=== PATIENT | female | born 1985 | race Caucasian/White ===

== ENCOUNTER 2018-08-17 00:29 | Outpatient (CLI) | payer MEDICAID, SELFPAY ==
--- NOTE | 2018-08-17 11:00 | DI.CT_ITS ---
SYMPTOM/DIAGNOSIS: LT EAR PAIN, H92.02, ? MASTOIDITIS NONCONTRAST HEAD CT: A noncontrast cranial CT was performed. Ventricular system is normal in appearance. No evidence of intracranial hemorrhage, mass effect or midline shift. The orbital structures appear intact. Paranasal sinuses are generally well aerated with minimal mucoperiosteal thickening of left maxillary antrum. Mastoid air cells appear clear bilaterally. The middle and inner ear structures appear intact as visualized. CONCLUSION: Negative cranial CT. No evidence of mastoiditis.
== END 2018-08-17 00:49 ==
PROVIDERS: PCP Nurse Practitioner Family; Visit Provider Nurse Practitioner Family
DX: H92.02 Otalgia, left ear (principal)
CPT/HCPCS: 70450

== ENCOUNTER 2018-08-17 17:09 | Outpatient (REF) | payer MEDICAID, SELFPAY ==
[2018-08-17 21:16] LABS: Iron 41 ug/dL (50-175)
[2018-08-17 21:42] LABS: Folate 18.8 ng/mL (8.6-20.0); Vitamin B12 386 pg/mL (193-986)
== END 2018-08-17 17:29 ==
LOC: NCHCN 17:09
PROVIDERS: PCP Nurse Practitioner Family; Visit Provider Nurse Practitioner Family
DX: K13.79 Other lesions of oral mucosa (principal)
CPT/HCPCS: 70450; 82607; 82746; 83540

== ENCOUNTER 2019-02-16 14:11 | Outpatient (REF) | payer MEDICAID, SELFPAY ==
--- NOTE | 2019-02-16 13:30 | PAPFT_PTH ---
PATIENT: Citlali Soriano LOC: [facility] U#:[id number] AGE/SX: 33/F ROOM: RE02/16/[address]: LEONOR Lara : 1985 BED: DIS: 02/16/2019 SPEC #: [id number] RECD: 02/16/19 18:01 STATUS: GLENN REQ #: [id number] JÚNIOR: 02/16/19 13:[address]: Concetta Dumont DEPT: [facility] Cytology RECD BY: Angelique Mtz ENTERED: 02/16/19 18:01 SP TYPE: PAPFT OTHR DR: Jane Ulloa Tissues: 1 - CX/ENDOCX FOR PAP SMEARS Procedures: PAP THIN PREP/UVM Screening HPV DNA PROBE Comments: [id number]
[2019-02-19 14:51] LABS: Chlamydia Result Negative (Negative); GC Result Negative (Negative); Specimen Description CERVIX
== END 2019-02-16 14:31 ==
LOC: LBN 14:11
PROVIDERS: PCP Nurse Practitioner Family; Visit Provider Nurse Practitioner Family
DX: Z11.3 Encounter for screening for infections with a predominantly sexual mode of transmission (principal); Z12.4 Encounter for screening for malignant neoplasm of cervix; Z11.51 Encounter for screening for human papillomavirus (HPV)
CPT/HCPCS: 87491; 87591; 88142; 87624

== ENCOUNTER 2019-02-24 11:43 | Emergency (ER) | payer MEDICAID, SELFPAY ==
[2019-02-24 11:56] VITALS: BP 134/76; PULSE 78; RESP 18; TEMP 37.1; O2SAT 98
--- NOTE | 2019-02-24 12:24 | ED.GENADUL_ITS ---
Discharge Plan Disposition Patient Disposition: HOME Condition: Improving Discharge Details Chief Complaint: GenMedical Clinical Impression: Contusion of left shoulder Primary Care Provider: Jane Ulloa ED Provider: Matias Drummond Home Meds and New Rx's Prescriptions: Continued fluoxetine 40 mg capsule 40 mg PO DAILY RF: 0 ferrous gluconate 324 mg (37.5 mg iron) tablet 324 mg PO BID RF: 0 naproxen 500 mg tablet 500 mg PO BID PRNRF: 0 riboflavin (vitamin B2) [Vitamin B-2] 100 mg tablet 200 mg PO .q am & pm RF: 0 trazodone 50 mg tablet 100 mg PO QHS RF: 0 omeprazole 40 mg capsule,delayed release(DR/EC) 40 mg PO DAILY RF: 0 gabapentin 600 mg tablet 600 mg PO TID RF: 0 albuterol 90 mcg/actuation aerosol See Rx Instructions IH .COMPLEX PRNRF: 0 Mirena 1 EACH intrauterine device 1 ea Intrauterine ONCE Qty: 1 RF: 0 docusate sodium [Colace] 100 MG capsule 100 mg PO BID Qty: 60 RF: 1 Discharge Instructions Instructions: Contusion in Adults (ED) Additional Instructions: Please follow-up with orthopedics for recheck. Please call the office at [phone] for an appointment time. Sling as needed for comfort. You may begin to reuse the arm as tolerated. Ice to area to reduce discomfort. May use Tylenol if needed for pain. Return to the ER for any acute concern. Medical Decision Making 33-year-old female presents stating that she was sitting on the toilet last night, believes that she fell asleep and fell onto her left side, striking her head and shoulder. Now with left shoulder pain that is limiting the movement of the arm. She initially stated that she could not move it, but moves it willfully upon my examination but limited by pain. She does have sensation intact throughout the shoulder including lateral deltoid. Referred for CT scan of the head, cervical spine, chest x-ray, left shoulder x- ray. These imaging studies are unremarkable with the exception of the left glenohumeral joint space is widened. There is slight inferior and anterior subluxation. Consideration of joint effusion., Consider deltoid atony. I discussed the case with Dr. Godfrey. We will place patient in sling, she may follow-up in orthopedics, she may use the joint ad mylene. Patient stable. ECG Data Attestation: I personally reviewed and interpreted this ECG (s) as follows: Interpretation: Normal sinus rhythm, rate of 76, the QRS is narrow, intervals are unremarkable, there is no ST segment elevation present. HPI General Mode of arrival: ambulatory . Date/Time Provider Initiated Documentation: 02/24/19 12:07 . Limitations to Documentation: no limitations . Information obtained by: patient . History of Present Illness 33 year old F presents to the emergency department with the chief complaint of Fall off toilet last night, left shoulder pain, headache, Quality is described as dull and constant, and is localized to the head, left and upper extremity. Patient reports no radiation. Patient started experiencing this hour(s) and it has been constant. Movement improves symptom(s), Rest worsens symptoms . Patient notes denies confusion, fever/chills and headaches. Patient did receive the following treatments prior to arrival, none Related Data Home Medications Medication Instructions Recorded Confirmed Mirena 1 ea INTRAUTERINE ONCE #1 implant 07/02/14 07/19/16 docusate sodium [Colace] 100 mg PO BID #60 cap 09/06/14 albuterol 90 mcg/actuation aerosol See Rx Instructions IH .COMPLEX PRN 02/16/19 inhaler ferrous gluconate 324 mg (37.5 mg 324 mg PO BID tab 02/16/19 iron) tablet fluoxetine 40 mg capsule 40 mg PO DAILY 02/16/19 gabapentin 600 mg tablet 600 mg PO TID 02/16/19 naproxen 500 mg tablet 500 mg PO BID PRN 02/16/19 omeprazole 40 mg capsule,delayed 40 mg PO DAILY 02/16/19 release riboflavin (vitamin B2) 100 mg 200 mg PO .q am & pm tab 02/16/19 tablet trazodone 50 mg tablet 100 mg PO QHS tab 02/16/19 Allergies Allergy/AdvReac Type Severity Reaction Status Date / Time cefdinir [From Omnicef] Allergy Intermediate Hives Unverified 02/22/19 13:35 General Stated Complaint: GenMedical YAMILET: 3 Review of Systems Narrative: 6 systems reviewed and otherwise negative. PFSH Family History Father COPD (chronic obstructive pulmonary disease) Mother Stomach cancer Social History Smoking/Tobacco Use Status: Current every day Quit status: not considering quitting Alcohol Intake: former Drug use: Occasionally Substance use type: marijuana Do you feel safe at home: Yes Do you feel safe in your relationship?: Yes Exam Narrative Exam Narrative: GEN: awake, alert, oriented 3. Pleasant, well groomed, interactive. HEAD: Normocephalic, atraumatic ENT: Mucous membranes moist, oropharynx unremarkable, External ear exam unremarkable EYES: PERRL, EOMI NECK: Full ROM, no LAURIE, no menigismus CHEST/RESP: Nontender, clear to auscultation bilateral, no wheeze/rhonchi/rales CARDIOVASCULAR: RRR, no murmur, rub sherrie. 2+ Rad pulse bilateral ABDOMEN: Soft, nontender, no mass. +Bowel sounds EXT: Pain with palpation left supraspinatus posterior shoulder. Motor diminished left side. Neuro: Grossly normal neurologic exam, conversant, interactive. Psych: Speech fluent, thoughts congruent, affect normal Course Vital Signs Vital signs: Vital Signs Temperature 37.1 C 02/24/19 11:56 Pulse 78 02/24/19 11:56 Respiratory Rate 18 02/24/19 11:56 Blood Pressure 134/76 02/24/19 11:56 Pulse Oximetry 98 02/24/19 11:56 Temperature 37.1 C 02/24/19 11:56 Temperature Source Skin 02/24/19 11:56 Pulse 78 02/24/19 11:56 Respiratory Rate 18 02/24/19 11:56 Respiratory Effort Non-Labored 02/24/19 12:01 Respiratory Depth Normal 02/24/19 12:01 Respiratory Pattern Normal 02/24/19 12:01 Blood Pressure 134/76 02/24/19 11:56 Blood Pressure Position Sitting 02/24/19 11:56 Pulse Oximetry 98 02/24/19 11:56 Oxygen Delivery Method Room Air 02/24/19 11:56 Oxygen Flow Rate 0 02/24/19 11:56 Pain Level 8 02/24/19 11:56
--- NOTE | 2019-02-24 13:18 | DI.RAD_ITS ---
EXAM: XR CHEST 2V PA LATERAL INDICATION: L shoulder pain. COMPARISON: CHEST 2 VIEWS PA,LAT from 06/28/2016 TECHNIQUE: 2D digital imaging was performed. FINDINGS: Heart size and pulmonary vasculature are within normal limits. There is linear atelectasis in the le ft lung base. The lungs are otherwise clear. No pleural effusion or pneumothorax is identified. Th e bones appear intact. Please refer to the x-ray of the left shoulder for complete details. IMPRESSION: Basilar atelectasis.
--- NOTE | 2019-02-24 13:20 | DI.RAD_ITS ---
EXAM: XR SHOULDER LT COMPLETE 2+V INDICATION: L arm pain. COMPARISON: No exams were available for comparison TECHNIQUE: 2D digital imaging was performed. FINDINGS: No acute fracture is identified. There is mild inferior subluxation of the humeral head relative to the glenoid. This may reflect a joint effusion. The acromioclavicular joint appears unremarkable. The bones are normally mineralized. The soft tissues are unremarkable. IMPRESSION: Mild inferior subluxation of the left shoulder. Joint effusion cannot be excluded. If there is conc jasson for internal derangement, an MRI may be considered.
--- NOTE | 2019-02-24 13:25 | DI.CT_ITS ---
EXAM: CT HEAD CERVICAL SPINE WO CLINICAL HISTORY: fall, L headache L arm pain TECHNIQUE: The exam was performed according to the usual protocol without contrast enhancement. COMPARISON: CT HEAD WO from 08/17/2018 FINDINGS: There is a normal almanza-white matter differentiation. No intracranial hemorrhage, midline shift, or m ass effect is present. The ventricles are intact. The basilar cisterns are patent. The calvarium i s intact. The visualized paranasal sinuses are clear. The mastoid air cells are well pneumatized. There is straightening of the normal cervical lordosis. This may be due to muscle spasm or patient p ositioning. No acute fractures or subluxations are seen in the cervical spine. No central spinal ca nal stenosis is present. The prevertebral soft tissues are unremarkable. There are bilateral thyroi d nodules present. The right lesion measures 1.8 cm and has a peripheral calcification. Ultrasound for follow-up is recommended. IMPRESSION: 1. No acute intracranial process. 2. No acute fracture or subluxation in the cervical spine. 3. Thyroid nodules as described above. Thyroid ultrasound is recommended for further evaluation. Isidro madrigal recommendation should be based on ultrasound findings.
[2019-02-24 14:02] LABS: Abs Immature Grans 0.04 k/cumm (0.0-0.09); Absolute Eosinophil Count 0.03 k/cumm (0.0-0.7); Absolute Lymphocyte Count 2.98 k/cumm (1.2-3.4); Absolute Monocyte Count 0.87 k/cumm (0.11-0.7); Absolute Neutrophil Count 10.39 k/cumm (1.2-6.7); Basophils % 0.1; Eosinophils % 0.2; HCT 37.8 % (36.0-46.0); HGB 12.6 g/dL (12.0-15.5); Immature Grans % 0.3; Lymphocytes % 20.8; Mean Corp. HGB Concentration 33.3 g/dL (32.0-36.0); Mean Corpuscular Hemoglobin 29.7 pg (27.0-33.0); Mean Corpuscular Volume 89.2 fL (80-95); Mean Platelet Volume 9.2 fL (8.0-11.0); Monocytes % 6.1; Neutrophils % 72.5; Platelet Count 420 x1000/uL (130-400); RBC 4.24 m/cumm (4.00-5.20); RBC Distribution Width 13.8 % (11.7-14.6); White Blood Cell Count 14.33 k/cumm (4.4-10.8)
[2019-02-24 14:05] LABS: Absolute Basophil Count 0.01 k/cumm (0.0-0.2)
--- NOTE | 2019-02-24 14:14 | DI.VRAD_ITS ---
PROCEDURE INFORMATION: Exam: CT Head Without Contrast Exam date and time: 02/24/2019 1:22 PM Clinical history: 33 years old, female; Other: Patient fell on left side; Neck pain TECHNIQUE: Imaging protocol: Computed tomography of the head without contrast. Radiation optimization: All CT scans at this facility use at least one of these dose optimization techniques: automated exposure control; mA and/or kV adjustment per patient size (includes targeted exams where dose is matched to clinical indication); or iterative reconstruction. COMPARISON: CT HEAD WO 08/17/2018 10:54 AM FINDINGS: Brain: There is no acute intracranial hemorrhage. No extra-axial fluid collection. No evidence of acute infarct. Ingram white differentiation is intact. There is no evidence of mass. There is no mass effect or midline shift. Ventricles: No ventriculomegaly. Bones/joints: No acute fracture. Sinuses: Unremarkable as visualized. No acute sinusitis. Mastoid air cells: No significant mastoid effusion. Soft tissues: Unremarkable as visualized. Other findings: There are dural calcifications. IMPRESSION: No evidence of acute intracranial abnormality. PROCEDURE INFORMATION: Exam: CT Cervical Spine Without Contrast Exam date and time: 02/24/2019 1:22 PM Clinical history: 33 years old, female; Other: Patient fell on left side; Neck pain TECHNIQUE: Imaging protocol: Computed tomography images of the cervical spine without contrast. Radiation optimization: All CT scans at this facility use at least one of these dose optimization techniques: automated exposure control; mA and/or kV adjustment per patient size (includes targeted exams where dose is matched to clinical indication); or iterative reconstruction. COMPARISON: CT HEAD WO 08/17/2018 10:54 AM FINDINGS: Vertebrae: Loss of cervical lordosis may be positional or associated with muscular spasm. Vertebral body heights are maintained. There is no fracture or dislocation. Facet joints appear well aligned. Discs/Spinal canal/Neural foramina: No spinal stenosis. No neural foraminal narrowing. Prevertebral Space: Prevertebral soft tissues appear normal. Soft tissues: Unremarkable. Thyroid: There are bilateral low-density thyroid nodules with small amount of marginal calcification on right measuring up to 1.8 cm. Recommend followup thyroid ultrasound. Further management of the ITN after thyroid ultrasound, including fine-needle aspiration, should be based on ultrasound findings. Lungs: Lung apices are unremarkable for acute finding. IMPRESSION: 1. Loss of cervical lordosis. No evidence of fracture or dislocation. 2. Thyroid nodules for which followup nonemergent ultrasound is recommended. Dictated and Authenticated by: Jenn Levy MD. Ordering:ARABELLA Salcedo MD
[2019-02-24 14:18] LABS: ALT 24 U/L (14-59); AST 16 U/L (15-37); Albumin 3.6 g/dL (3.4-5.0); Alkaline Phosphatase 105 U/L (46-116); Anion Gap 8.9 mmol/L (3-11); BUN 9 mg/dL (7-18); Bilirubin, Total 0.3 mg/dL (0.2-1.0); CO2 29.1 mmol/L (21.0-32.0); CREATININE 0.68 mg/dL (0.55-1.02); Calcium 9.3 mg/dL (8.5-10.1); Chloride 101 mmol/L (98-107); Glucose 101 mg/dL (70-100); Magnesium 1.7 mg/dL (1.8-2.4); Potassium 3.7 mmol/L (3.5-5.1); Sodium 139 mmol/L (136-145); Total Protein 8.4 g/dL (6.4-8.2)
[2019-02-24 14:19] LABS: Troponin I < 0.05 ng/mL (0.00-0.06)
--- NOTE | 2019-02-24 14:21 | DI.VRAD_ITS ---
PROCEDURE INFORMATION: Exam: XR Left Shoulder Exam date and time: 02/24/2019 1:20 PM Clinical history: 33 years old, female; Numbness and weakness; Shoulder; Patient HX: Patient fell on left side TECHNIQUE: Imaging protocol: XR Left shoulder. Views: 2 or more views. COMPARISON: No relevant prior studies available. FINDINGS: Bones/joints: Patient's glenohumeral joint space appears mildly widened on the Grashey view. And slightly inferiorly and anteriorly subluxed on axillary view and AP views. This could indicate presence of joint effusion or deltoid atony. This could be further evaluated with MRI. No evidence of acute fracture. Soft tissues: See Bones/joints Finding. IMPRESSION: Joint space appears widened with slight subluxation as described. Consider further evaluation with MRI. No evidence of fracture. Dictated and Authenticated by: Jenn Levy MD. Ordering:ARABELLA Salcedo MD
--- NOTE | 2019-02-24 14:22 | DI.VRAD_ITS ---
PROCEDURE INFORMATION: Exam: XR Chest, 2 Views Exam date and time: 02/24/2019 1:20 PM Clinical history: 33 years old, female; Other: Left shoulder pain TECHNIQUE: Imaging protocol: XR of the chest Views: 2 views. COMPARISON: CR CHEST 2 VIEWS PA,LAT 06/28/2016 7:58 PM FINDINGS: Lungs: Minimal linear opacity left lung base is likely atelectasis. No focal consolidation. Pleural space: No visible pleural effusion. No pneumothorax. Heart/Mediastinum: No significant cardiomegaly. Bones/joints: Please see report of shoulder x-ray. IMPRESSION: Probable minimal linear atelectasis in left lung base. Dictated and Authenticated by: Jenn Levy MD. Ordering:ARABELLA Salcedo MD
== END 2019-02-24 15:23 | disposition home or self-care (01) ==
PROVIDERS: Emergency Provider Emergency Medicine; PCP Nurse Practitioner Family
DX: S40.012A Contusion of left shoulder, initial encounter (principal); W18.11XA Fall from or off toilet without subsequent striking against object, initial encounter
CPT/HCPCS: 36415; 80053; 93005; 99285; 70450; 71046; 72125; 73030; 83735; 84484; 85025; 93010; 99284; L3650

== ENCOUNTER 2019-03-17 20:41 | Emergency (ER) | payer MEDICAID, SELFPAY ==
--- NOTE | 2019-03-17 20:41 | ED.GENADUL_ITS ---
Discharge Plan Disposition Patient Disposition: HOME Condition: Stable Discharge Details Chief Complaint: AMS/LOC Clinical Impression: Fall Primary Care Provider: Jane Ulloa ED Provider: Brandon Cummings Home Meds and New Rx's Prescriptions: Continued fluoxetine 40 mg capsule 40 mg PO DAILY RF: 0 ferrous gluconate 324 mg (37.5 mg iron) tablet 324 mg PO BID RF: 0 naproxen 500 mg tablet 500 mg PO BID PRNRF: 0 riboflavin (vitamin B2) [Vitamin B-2] 100 mg tablet 200 mg PO .q am & pm RF: 0 trazodone 50 mg tablet 100 mg PO QHS RF: 0 omeprazole 40 mg capsule,delayed release(DR/EC) 40 mg PO DAILY RF: 0 gabapentin 600 mg tablet 600 mg PO TID RF: 0 albuterol 90 mcg/actuation aerosol See Rx Instructions IH .COMPLEX PRNRF: 0 Mirena 1 EACH intrauterine device 1 ea Intrauterine ONCE Qty: 1 RF: 0 docusate sodium [Colace] 100 MG capsule 100 mg PO BID Qty: 60 RF: 1 Discharge Instructions Additional Instructions: follow up with your primary care provider as scheduled and discuss having outpatient cardiac monitoring. You should also have your potassium level rechecked in 1-2 weeks if you have chest pain, fevers, abdominal pain or feel more ill return to the emergency department Medical Decision Making 33 yo female with hx of hepatitis c, gerd, former drug abuse, who comes in with ems after she was found unresponsive at the bottom of stairs. She gives a lot of vague or unclear answers, like when asked what stairs and location she says does it matter. She states the last thing she remembers is she was sitting at the bottom of the stairs then woke up in the ambulance. She arrives caox4 without deficits, continues to have left elbow and shoulder pain after having a fall. She is having a headache and states it feels similar to her prior migraines, no signs of trauma. She has full rom of the left arm and intact sensation. No chest pain, sob, abd pain and denies any drug use. Unclear cause of her syncope, will obtain lab work and imaging and monitor. No evidence of dvt, no hypoxia or tachycardia so doubt PE at this time labs show K of 3.0 and mild elevation of her lfts she has had in the past likely from hep c. She has remained stable, imaging unremarkable and has no complaints now. Feel she is safe for d/c and she has an appointment this week with her pcp and I advised they discuss outpatient holter vs zio patch and return precautions given Differential Diagnosis Differential Diagnosis: syncope, tbi, concussion Medical Records Medical records reviewed: Yes I reviewed the patient's medical records. Imaging Data Radiologic Study: Attestation: I personally reviewed and interpreted this imaging study as follows: Imaging: CT Scan Radiologist's impression: no acute findings Lab Data Lab results reviewed: Yes I reviewed the patient's lab results. HPI General Mode of arrival: ambulatory . Date/Time Provider Initiated Documentation: 03/17/19 21:32 . Limitations to Documentation: no limitations . Information obtained by: patient . History of Present Illness 33 year old F presents to the emergency department with the chief complaint of found unresponsive, described as moderate, No relieving factors improve symptom(s), No exacerbating factors reported . Patient did receive the following treatments prior to arrival, none Related Data Home Medications Medication Instructions Recorded Confirmed Mirena 1 ea INTRAUTERINE ONCE #1 implant 07/02/14 03/14/19 docusate sodium [Colace] 100 mg PO BID #60 cap 09/06/14 03/14/19 albuterol 90 mcg/actuation aerosol See Rx Instructions IH .COMPLEX PRN 02/16/19 03/14/19 inhaler ferrous gluconate 324 mg (37.5 mg 324 mg PO BID tab 02/16/19 03/14/19 iron) tablet fluoxetine 40 mg capsule 40 mg PO DAILY 02/16/19 03/14/19 gabapentin 600 mg tablet 600 mg PO TID 02/16/19 03/14/19 naproxen 500 mg tablet 500 mg PO BID PRN 02/16/19 03/14/19 omeprazole 40 mg capsule,delayed 40 mg PO DAILY 02/16/19 03/14/19 release riboflavin (vitamin B2) 100 mg 200 mg PO .q am & pm tab 02/16/19 03/14/19 tablet trazodone 50 mg tablet 100 mg PO QHS tab 02/16/19 03/14/19 Allergies Allergy/AdvReac Type Severity Reaction Status Date / Time cefdinir [From Omnicef] Allergy Intermediate Hives Verified 03/14/19 15:03 General YAMILET: 3 Review of Systems All systems reviewed & are unremarkable except as noted in HPI and below Constitutional Constitutional: Denies chills and Denies fever(s) ENT Ears, Nose, Mouth, and Throat: Denies change in voice Cardiovascular Cardiovascular: Denies chest pain and Denies dyspnea Respiratory Respiratory: Denies dyspnea Gastrointestinal Gastrointestinal: Denies abdominal pain, Denies nausea and Denies vomiting Musculoskeletal Musculoskeletal: Denies joint swelling [facility] Social History Smoking/Tobacco Use Status: Current every day Quit status: not considering quitting Alcohol Intake: former Drug use: Occasionally Substance use type: marijuana Current gender identity: female Do you feel safe at home: Yes Do you feel safe in your relationship?: Yes Female Reproductive History Menstrual control method: progestin IUCD Exam Const General: no acute distress Orientation: alert HENMT Head: normal to inspection Ears: external ears normal General nose exam: external nose normal Mouth: moist mucous membranes Eyes General: appearance normal, both eyes and all related structures Neck Neck: normal visual inspection Resp Effort & Inspection: normal respiratory effort and able to speak in complete sentences Cardio Rate: regular rate Skin General skin exam: no rashes or lesions noted Neuro General: alert and oriented x3 Extrem General: full ROM and normal capillary refill Psych Mental Status: mental status grossly normal
--- NOTE | 2019-03-17 20:42 | DI.CT_ITS ---
EXAM: CT HEAD CERVICAL SPINE WO CLINICAL HISTORY: pain s/p fall TECHNIQUE: Noncontrast. COMPARISON: CT HEAD CERVICAL SPINE WO from 02/24/2019 FINDINGS: HEAD: No intracranial hemorrhage or skull fracture is seen. The ventricles are normal in size. Ther e is normal almanza-white matter differentiation. The orbits, sinuses and mastoid air cells are unremar kable. C-spine:: There is no evidence of fracture or subluxation. No pneumothorax is seen at the lung apice s. The airway appears intact. There is no paraspinal hematoma. IMPRESSION: Negative CT of the brain and cervical spine.
[2019-03-17 20:46] VITALS: BP 165/85; PULSE 106; RESP 15; TEMP 36.4; O2SAT 95
[2019-03-17 21:42] LABS: Abs Immature Grans 0.04 k/cumm (0.0-0.09); Absolute Basophil Count 0.02 k/cumm (0.0-0.2); Absolute Eosinophil Count 0.02 k/cumm (0.0-0.7); Absolute Lymphocyte Count 1.55 k/cumm (1.2-3.4); Basophils % 0.1; Eosinophils % 0.1; HCT 42.2 % (36.0-46.0); HGB 13.9 g/dL (12.0-15.5); Immature Grans % 0.2; Lymphocytes % 9.7; Mean Corp. HGB Concentration 32.9 g/dL (32.0-36.0); Mean Corpuscular Hemoglobin 28.9 pg (27.0-33.0); Mean Corpuscular Volume 87.7 fL (80-95); Mean Platelet Volume 9.7 fL (8.0-11.0); Monocytes % 4.4; Neutrophils % 85.5; Platelet Count 287 x1000/uL (130-400); RBC 4.81 m/cumm (4.00-5.20); RBC Distribution Width 14.1 % (11.7-14.6); White Blood Cell Count 16.02 k/cumm (4.4-10.8)
[2019-03-17 21:51] LABS: Magnesium 1.7 mg/dL (1.8-2.4)
[2019-03-17 21:57] LABS: ALT 100 U/L (14-59); AST 55 U/L (15-37); Albumin 3.6 g/dL (3.4-5.0); Alkaline Phosphatase 143 U/L (46-116); Anion Gap 9.4 mmol/L (3-11); BUN 9 mg/dL (7-18); Bilirubin, Total 0.3 mg/dL (0.2-1.0); CO2 26.6 mmol/L (21.0-32.0); CREATININE 0.81 mg/dL (0.55-1.02); Calcium 8.9 mg/dL (8.5-10.1); Chloride 103 mmol/L (98-107); Glucose 195 mg/dL (70-100); Sodium 139 mmol/L (136-145); Total Protein 8.1 g/dL (6.4-8.2)
--- NOTE | 2019-03-17 22:05 | DI.VRAD_ITS ---
PROCEDURE INFORMATION: Exam: CT Head Without Contrast Exam date and time: 03/17/2019 9:49 PM Clinical history: 33 years old, female; Injury or trauma; Initial encounter; Blunt trauma; Patient HX: Pain S/P fall TECHNIQUE: Imaging protocol: Computed tomography of the head without contrast. COMPARISON: CT HEAD CERVICAL SPINE WO 02/24/2019 1:24 PM FINDINGS: No evidence of hemorrhage. No mass effect. No acute intracranial abnormality. No evidence of acute fracture. IMPRESSION: No evidence of acute intracranial process. PROCEDURE INFORMATION: Exam: CT Cervical Spine Without Contrast Exam date and time: 03/17/2019 9:49 PM Clinical history: 33 years old, female; Injury or trauma; Initial encounter; Blunt trauma; Patient HX: Pain S/P fall TECHNIQUE: Imaging protocol: Computed tomography images of the cervical spine without contrast. COMPARISON: CT HEAD CERVICAL SPINE WO 02/24/2019 1:24 PM FINDINGS: Straightening of the cervical spine. No focal subluxation. No acute fracture. Paraspinal soft tissues unremarkable. Lung apices within normal limits. Inhomogeneity and hypodensities within the lobes of the thyroid gland. Please see the final report for further details. IMPRESSION: No evidence of acute bony abnormality. Dictated and Authenticated by: Abimael Emerson MD. Ordering:ORLANDO Taylor MD
[2019-03-17 22:06] LABS: Troponin I < 0.05 ng/mL (0.00-0.06)
[2019-03-17 22:07] LABS: ETHANOL BLOOD < 3.0 mg/dL (<3)
[2019-03-17 22:16] VITALS: TEMP 36
[2019-03-17] MEDS: Normal Saline Flush 10 ML SYR IVP (22:16)
[2019-03-17 22:27] LABS: HCG Qual (Serum) Negative
[2019-03-17 22:59] VITALS: BP 145/85; PULSE 79; RESP 16; RESP 22; TEMP 37.5; O2SAT 99
== END 2019-03-17 22:55 | disposition home or self-care (01) ==
LOC: ER 22:43
PROVIDERS: Emergency Provider Emergency Medicine; PCP Nurse Practitioner Family
DX: R51 Headache (principal); R41.9 Unspecified symptoms and signs involving cognitive functions and awareness; B19.20 Unspecified viral hepatitis C without hepatic coma; W10.8XXA Fall (on) (from) other stairs and steps, initial encounter
CPT/HCPCS: 36415; 80053; 93005; 99285; 70450; 72125; 80320; 83735; 84484; 84703; 85025; 93010; J3490

== ENCOUNTER 2019-03-22 14:40 | Outpatient (REF) | payer MEDICAID, SELFPAY ==
[2019-03-22 22:30] LABS: TSH (W/Ref FT4) 0.05 uIU/mL (0.36-3.74)
== END 2019-03-22 15:00 ==
LOC: NCHCN 14:40
PROVIDERS: PCP Nurse Practitioner Family; Visit Provider Nurse Practitioner Family
DX: E04.1 Nontoxic single thyroid nodule (principal)
CPT/HCPCS: 84439; 84443

== ENCOUNTER 2019-10-08 16:42 | Outpatient (REF) | payer MEDICAID, SELFPAY ==
[2019-10-08 19:51] LABS: Anion Gap 9.2 mmol/L (3-11); BUN 6 mg/dL (7-18); CO2 25.8 mmol/L (21.0-32.0); CREATININE 0.66 mg/dL (0.55-1.02); Chloride 104 mmol/L (98-107); Glucose 118 mg/dL (74-106); Magnesium 1.9 mg/dL (1.8-2.4); Potassium 4.1 mmol/L (3.5-5.1); Sodium 139 mmol/L (136-145); TSH (W/Ref FT4) 0.21 uIU/mL (0.36-3.74)
[2019-10-08 20:16] LABS: FREE T4 0.99 ng/dL (0.76-1.46)
[2019-10-10 17:47] LABS: T3, Total 151 ng/dL (97-169)
== END 2019-10-08 17:02 ==
LOC: NCHCN 16:42
PROVIDERS: PCP Nurse Practitioner Family; Visit Provider Nurse Practitioner Family
DX: R55 Syncope and collapse (principal); E23.0 Hypopituitarism
CPT/HCPCS: 80048; 83735; 84439; 84443; 84480

== ENCOUNTER 2023-11-21 17:35 | Outpatient (REF) | payer MEDICAID, SELFPAY ==
--- NOTE | 2023-11-21 14:40 | PAPFT_PTH ---
PATIENT: Citlali Soriano LOC: [facility] U#:[id number] AGE/SX: 38/F ROOM: RE11/21/[address]: Zully Cummings NP : 1985 BED: DIS: 11/21/2023 SPEC #: [id number] RECD: 11/21/23 18:35 STATUS: GLENN REQ #: [id number] JÚNIOR: 11/21/23 14:[address]: Emiliano BRAR,Zully DEPT: [facility] Cytology RECD BY: Angelique Mtz ENTERED: 11/21/23 18:35 SP TYPE: PAPFT OTHR DR: Jane Ulloa Tissues: 1 - CX/ENDOCX FOR PAP SMEARS Procedures: PAP THIN PREP/[facility] Screening HPV DNA PROBE Comments: [id number] (HPV 16 & 18/45)
== END 2023-11-21 17:36 | disposition home or self-care (01) ==
LOC: LBN 17:35
PROVIDERS: PCP Nurse Practitioner Family; Visit Provider Nurse Practitioner Women's Health
DX: B37.2 Candidiasis of skin and nail (principal); Z12.4 Encounter for screening for malignant neoplasm of cervix; Z30.431 Encounter for routine checking of intrauterine contraceptive device; Z01.419 Encounter for gynecological examination (general) (routine) without abnormal findings
CPT/HCPCS: 88142; 87624

== ENCOUNTER 2024-05-21 15:24 | Outpatient (REF) | payer MEDICAID, SELFPAY ==
[2024-05-21 19:10] LABS: *AMPHETAMINES SCREEN URINE Negative (Negative); *BARBITURATES SCREEN URINE Negative (Negative); *BENZODIAZEPINES SCREEN URINE Negative (Negative); Cannabinoids THC Negative (Negative); Cocaine Screen,Urine Negative (Negative); METHADONE URINE SCREEN Negative (Negative); OPIATES URINE SCREEN Negative (Negative)
[2024-05-21 19:12] LABS: Tricyclic Antidepressants Negative (Negative)
[2024-05-24 13:17] LABS: Buprenorphine 385.9 ng/mL (Cutoff: 5.0)
[2024-06-04 10:00] LABS: Naloxone Confirmation Total Ur >2000 ng/mL
== END 2024-05-21 15:25 | disposition home or self-care (01) ==
LOC: LBN 15:24
PROVIDERS: Visit Provider Emergency Medicine
DX: Z79.891 Long term (current) use of opiate analgesic (principal); F11.20 Opioid dependence, uncomplicated
CPT/HCPCS: 80307; 80348

== ENCOUNTER 2024-09-19 11:55 | Outpatient (REF) | payer MEDICAID, SELFPAY ==
[2024-09-19 13:18] LABS: *AMPHETAMINES SCREEN URINE Negative (Negative); *BARBITURATES SCREEN URINE Negative (Negative); *BENZODIAZEPINES SCREEN URINE Negative (Negative); Cannabinoids THC Positive (Negative); Cocaine Screen,Urine Negative (Negative); METHADONE URINE SCREEN Negative (Negative); OPIATES URINE SCREEN Negative (Negative)
[2024-09-19 13:19] LABS: Tricyclic Antidepressants Negative (Negative)
[2024-09-26 10:22] LABS: Buprenorphine 141.6 ng/mL (Cutoff: 5.0); Norbuprenorphine 900.8 ng/mL (Cutoff: 2.5)
[2024-10-08 10:56] LABS: Naloxone Confirmation Total Ur 260 ng/mL
== END 2024-09-19 11:56 | disposition home or self-care (01) ==
LOC: LBN 11:55
PROVIDERS: Visit Provider Emergency Medicine
DX: F11.20 Opioid dependence, uncomplicated (principal)
CPT/HCPCS: 80307; 80348

== ENCOUNTER 2024-12-18 14:25 | Outpatient (REF) | payer MEDICAID, SELFPAY ==
[2024-12-19 11:25] LABS: Chlamydia Result Negative (Negative); GC Result Negative (Negative)
== END 2024-12-18 14:26 | disposition home or self-care (01) ==
LOC: LBN 14:25
PROVIDERS: Visit Provider Nurse Practitioner Women's Health
DX: Z11.3 Encounter for screening for infections with a predominantly sexual mode of transmission (principal)
CPT/HCPCS: 87491; 87591